=== PATIENT | female | born 1960 | race Caucasian/White ===

== ENCOUNTER 2016-11-04 20:44 | Emergency (ER) | payer SELFPAY, OTHER | END 2016-11-04 22:47 | disposition home or self-care (01) | LOC: ER 20:44 | DX: S16.1XXA Strain of muscle, fascia and tendon at neck level, initial encounter (principal); S60.414A Abrasion of right ring finger, initial encounter; V49.60XA Unspecified car occupant injured in collision with unspecified motor vehicles in traffic accident, initial encounter ==